=== PATIENT | female | born 1990 | race Caucasian/White ===

== ENCOUNTER 2018-02-01 13:49 | Emergency (ER) | payer OTHER, SELFPAY ==
[2018-02-01 13:50] VITALS: BP 123/76; PULSE 122; RESP 18; TEMP 36.7; O2SAT 100; BMI 23.4
[2018-02-01 14:05] VITALS: BP 127/75; PULSE 103; RESP 18; O2SAT 100
--- NOTE | 2018-02-01 14:23 | US_ITS ---
STUDY: FIRST TRIMESTER OBSTETRICAL ULTRASOUND REASON FOR EXAM: Female, 27 years old. Pelvic pain LMP: 12/29/2017 TECHNIQUE: Transvaginal TECHNICAL QUALITY: Adequate. PRIOR ULTRASOUND: None. FINDINGS: There is visualization of a single gestational sac in a normal intrauterine position. The mean sac diameter (MSD) measures 3 mm, indicating an estimated gestational age (EGA) of 4 weeks, 5 days. The gestational sac shape is within normal limits. There is no demonstrated yolk sac. The placenta is non-visualized. There is no demonstrated embryo ( pole). The estimated gestation age (EGA) by LMP is 4 weeks, 6 days. The estimated date of delivery (WYATT) by LMP is 10/05/2018. The estimated gestation age (EGA) by US is 4 weeks, 5 days. The estimated date of delivery (WYATT) by US is 10/06/2018. The uterus measures 7.9 x 5.1 x 3.7 cm.. There is no demonstrated uterine fibroid. The cervix is closed. The right ovary measures 2.5 x 1.5 x 1.3 cm. There is no right ovarian cyst. There is no visualized right adnexal mass or complex lesion. The left ovary was not visualized. There is no fluid in the cul de sac. US/Transvaginal w/Preg US IMPRESSION: A gestational sac is noted measuring 3 mm, corresponding to very early of 4 weeks 5 days. No pole or yolk sac is identified as of yet. The right ovary appears normal. The left ovary was not visualized. Close interval ultrasound follow-up with beta hCG correlation is recommended. Electronically Signed: Arcenio Sanders MD at 17:04 EST , Service support ,
--- NOTE | 2018-02-01 14:41 | ED.VISSUMM ---
- ER Visit Summary Date of Service: 02/01/18 Chief Complaint: Abdominal pain History of Present Illness: The patient is a 27 F presenting with left lower quadrant abdominal pain. She states that this has worsened over the past 2 days. She has nausea with no vomiting. She denies fever. She has a history of acute intermittent porphyria. She is 5 weeks . She states typically when she is her symptoms worsen. She denies vaginal bleeding. She was seen by Dr. Villanueva 1.5 weeks ago. She recently moved here from [place]. In [place] she was receiving hemin infusions every 4 weeks. She is on Percocet and morphine at home. She is scheduled to follow with [facility]. She had an ultrasound last week and was told it was too early to see the baby. Physical Examination: Vitals are stable. Patient is afebrile. Alert no acute distress. HEENT exam is unremarkable. Neck is supple. Lungs are clear and equal bilaterally. Heart is regular rate and rhythm. Abdomen is soft left lower quadrant tenderness with no rebound or guarding Extremities are unremarkable. Skin is warm and dry. No focal neurologic deficit. Remainder of exam is unremarkable. Emergency Department Course and Treatment: Patient was given morphine, Zofran IV. CBC shows white count 4.3, chemistries show BUN 29. Urinalysis unremarkable. hCG quant 3399. Blood type is A positive. Pelvic ultrasound shows gestational sac is noted measuring 3 mm, corresponding to very early of 4 weeks 5 days. No pole or yolk sac is identified as of yet. The right ovary appears normal. The left ovary was not visualized. Close interval ultrasound follow-up with beta hCG correlation is recommended. Discussed with Dr Oconnell. We do not have hemin available, recommends transfer to tertiary care center. Discussed with [facility] and patient was accepted for transfer. Disposition: Transfer [facility] Impression: Acute intermittent porphyria This note was generated with [employer] dictation software. It may contain incorrect words, spelling, and punctuation that were not noted in review of the chart prior to signing ED Disposition - Plan for ED Patient: Chief Complaint: Abd Pain Referrals: Chris Pittman MD [Primary Care Provider] -
[2018-02-01 14:49] LABS: Bacteria 0 SEEN /hpf (None Seen); Mucous, Urine 0 SEEN /hpf (<or=2+); Red Blood Cells-Urine 0 SEEN /hpf (0-5); White Blood Cells 0 SEEN /hpf (0-5)
[2018-02-01 14:55] LABS: Color, Urine Yellow (Yellow); Glucose, Dipstick Normal (Normal); Ketone-Dipstick Negative (Negative); Leukocyte Esterase-Dipstick Negative /ul (Negative); Nitrite-Dipstick Negative (Negative); Occult Blood-Urine Negative /ul (Negative); Protein-Dipstick Negative (Negative); Specific Gravity, Urine 1.005 (1.002-1.030); Urine Bilirubin Dipstick Negative (Negative); Urine Clarity Sl. Cloudy (Clear); Urine Urobilinogen Normal (Normal); Urine pH 6.5 (5.0 - 8.0)
[2018-02-01 15:02] LABS: Squamous Epithelial Cells - UA 5-10 SEEN /hpf (5-10)
[2018-02-01] MEDS: 0.9% Normal Saline 1,000 ML 1000 ML IV (15:11)
[2018-02-01] MEDS: Morphine 4 MG/ML Syringe IV ×3 (15:11→19:51)
[2018-02-01] MEDS: Ondansetron 4 MG/2 ML Vial IV ×2 (15:12→19:50)
[2018-02-01 15:27] LABS: Absolute Lymphocyte Count 0.81 X10^3/ul (0.83-4.51); Absolute Neutrophil Count 3.2 X10^3/uL (2.0-7.7); Basophil# 0.01 X10^3/uL; Basophil% 0.2 % (0-1); Eosinophil# 0.02 X10^3/uL; Eosinophils% 0.5 % (0-5); Hematocrit 39.8 % (37-47); Hemoglobin 12.7 g/dl (12.0-15.0); Lymphocyte # 0.81 X10^3/ul (4.0); Lymphocyte % 18.8 % (19-41); Mean Corp Hgb Conc 31.9 g/gl (32-36); Mean Corpuscular Hgb 28.2 pg (27.0-32.0); Mean Corpuscular Volume 88.4 fL (81-99); Mean Platelet Vol. 10.5 fl (6.2-12.0); Monocyte# 0.29 X10^3/uL; Monocyte% 6.7 % (0-10); Neutrophil # 3.18 X10^3/uL (2.7-7.7); Neutrophil % 73.8 % (47-70); Platelet Count 205 K/mm3 (150-450); RBC Distribution Width CV 12.6 % (11.6-14.6); RBC Distribution Width SD 40.5 fl (35.1-43.9); White Blood Count 4.3 K/mm3 (4.4-11.0)
[2018-02-01 15:34] LABS: POSITIVE COUNT NO; POSITIVE DIFFERENTIAL NO; POSITIVE MORPHOLOGY NO
[2018-02-01 15:36] LABS: Anion Gap 10 (5-15); BUN 29 mg/dL (7-18); BUN/Creat Ratio 29.2 RATIO (10-20); Calcium,Total 9.7 mg/dL (8.5-10.1); Chloride 106 mmol/L (98-107); Creatinine, Serum 0.99 mg/dL (0.55-1.02); EST Glomerular Filtration Rate 72 mL/min (>60); Est Glom Filt Rate - Afr Amer 87 mL/min (>60); Estimated Creatinine Clearance 80.61 ml/min; Glucose 81 mg/dL (74-106); Sodium Level 138 mmol/L (136-145)
[2018-02-01 16:18] LABS: hCG Titer Quant., Serum 3399 mIU/mL (<9 non-preg)
[2018-02-01 16:42] VITALS: BP 118/64; PULSE 112; RESP 16; O2SAT 100
--- NOTE | 2018-02-01 17:43 | NURSING ---
CALLING [facility]
[2018-02-01 18:33] VITALS: BP 95/54; PULSE 84; RESP 15; O2SAT 100
[2018-02-01 19:07] LABS: AST(SGOT) 29 U/L (15-37); Alanine Aminotransfer ALT/SGPT 36 U/L (13-56); Albumin, Serum 4.6 g/dL (3.2-5.0); Alkaline Phosphatase 81 U/L (45-117); Bilirubin, Direct 0.22 mg/dL (0.00-0.30); Globulin 4.4 g/dL (2.2-4.2)
[2018-02-01 19:57] VITALS: BP 116/57; PULSE 91; RESP 16; O2SAT 100
== END 2018-02-01 19:59 | disposition short-term general hospital (02) ==
PROVIDERS: Emergency Provider Emergency Medicine; Family Provider Family Medicine; PCP Family Medicine
DX: O99.89 Other specified diseases and conditions complicating pregnancy, childbirth and the puerperium (principal); E80.21 Acute intermittent (hepatic) porphyria; O99.351 Diseases of the nervous system complicating pregnancy, first trimester; G40.909 Epilepsy, unspecified, not intractable, without status epilepticus; Z3A.01 Less than 8 weeks gestation of pregnancy; Z79.899 Other long term (current) drug therapy
CPT/HCPCS: 36415; 76817; 80048; 80076; 81001; 84702; 85025; 86900; 96361; 96374; 96375; 96376; 99283; J7030; A4216; J2405

== ENCOUNTER 2018-02-06 12:08 | Emergency (ER) | payer OTHER, SELFPAY ==
[2018-02-06 12:09] VITALS: BP 143/85; PULSE 115; RESP 18; TEMP 37; O2SAT 98; BMI 23.8
--- NOTE | 2018-02-06 12:28 | ED.DCSUM_ITS ---
- ER Visit Summary Date of Service: 02/06/18 Chief Complaint: Presents from work because of severe lower abdominal pain History of Present Illness: The patient is a 27 F who presents from work because of severe lower abdominal pain. She states she has had similar episode a recent admission for treatment of porphyruria. Patient states she called Dr. Ireland's office. She reports no response and reason she presents to the emergency department. She denies fever, chills night sweats. She denies ocular, visual auditory symptoms. She denies cardiac or stroke symptoms. She denies dysuria, frequency, urgency or hematuria. She denies vaginal discharge or vaginal bleeding. She is 6 weeks gestation. This is her second . There is no history of trauma. Physical Examination: Vital signs noted and remarkable for an elevated blood pressure and elevated heart rate of 143/85 and 115 respectively. Of note there was no eye contact during the history and majority of the physical examination. Heart is regular without murmur, gallop or rub. S1 and S2 are normal. Lungs a re clear to auscultation with good movement of air bilaterally. Abdomen is soft and nontender. There is no guarding or peritoneal findings. There is no palpable pulsatile mass. There is no abdominal bruit. Felder sign is negative. Negative Rovsing sign. There is no evidence of inguinal or umbilical hernia. There is a surgical scar secondary to laparoscopic appendectomy. There is no evidence of trauma. There is no skin lesions. There is no CVA tenderness noted. Test Results: Case was discussed with Dr. Oconnell. He informed me that she declined fourth dose of hematin. Emergency Department Course and Treatment: Call was placed to Dr. Oconnell to discuss patient's case and suggestions regarding treatment management since she was released from [facility] less than 48 hours ago and this is an ongoing chronic problem. Treatment Plan: It was recommended by Dr. Ireland that she go to [facility]. She declined fourth dose of hemin. She does not wish to be transferred to the [facility] today. She requested liter of D10 and something for the pain. Disposition: Discharged home in stable improved condition Impression: 1. Abdominal pain 2. History of porphyruria 3. First trimester This note was generated with Voal[employer] dictation software. It may contain incorrect words, spelling, and punctuation that were not noted in review of the chart prior to signing ED Disposition - Plan for ED Patient: Disposition: Home or Assisted Living Chief Complaint: Abd Pain Referrals: Chris Pittman MD [Primary Care Provider] - As Needed Additional Instructions: Recommend following up with your oncologist Dr. Steele. If you develop fever, severe abdominal pain, nausea vomiting or any concerns please do not hesitate to return to the emergency department.
[2018-02-06] MEDS: Morphine 2 MG/ML Syringe IV (13:12)
[2018-02-06] MEDS: Ondansetron 4 MG/2 ML Vial IV (13:12)
[2018-02-06] MEDS: Dextrose 10%-Water 250 ML 1000 ML IV ×4 (13:31→14:24)
[2018-02-06 16:02] VITALS: BP 115/60; PULSE 100; RESP 16; O2SAT 100
== END 2018-02-06 16:13 | disposition home or self-care (01) ==
PROVIDERS: Emergency Provider Emergency Medicine; Family Provider Family Medicine; PCP Family Medicine
DX: O26.891 Other specified pregnancy related conditions, first trimester (principal); R10.30 Lower abdominal pain, unspecified; O99.89 Other specified diseases and conditions complicating pregnancy, childbirth and the puerperium; E80.20 Unspecified porphyria; Z3A.01 Less than 8 weeks gestation of pregnancy
CPT/HCPCS: 96361; 96374; 96375; 99282; A4216; J2405

== ENCOUNTER 2018-02-19 23:25 | Emergency (ER) | payer OTHER, SELFPAY ==
[2018-02-19 23:26] VITALS: BP 135/76; PULSE 107; RESP 17; TEMP 36.7; O2SAT 100; BMI 26.7
[2018-02-20 01:07] LABS: hCG Titer Quant., Serum 3421 mIU/mL (<9 non-preg)
--- NOTE | 2018-02-20 01:26 | ED.VISSUMM ---
- ER Visit Summary Date of Service: 02/20/18 Chief Complaint: Vaginal bleeding History of Present Illness: The patient is a 27 F who is 7 weeks by dates. She was seen here on February 01 for abdominal pain and found to be . Ultrasound at that time showed a gestational sac measuring about 4 weeks. She had a follow-up appointment with [facility] yesterday and had a repeat ultrasound and was told she was still measuring 4 weeks and they were unable to visualize any cardiac activity. She was told to return in 2 weeks for repeat ultrasound. She has been having some light brown bleeding but it became prior to her today and she had a single small clot. No fevers. She denies any pelvic pain. No vaginal discharge. No urinary symptoms Physical Examination: Afebrile heart rate 107 vitals otherwise unremarkable Heart regular rhythm slightly tachycardic Lungs clear Abdomen soft nontender nondistended Alert Test Results: Quantitative hCG is 3421 which is only slightly up from 3399 on February 01. Emergency Department Course and Treatment: Quantitative hCG obtained as above. Patient just had an ultrasound yesterday. She is not complaining of any severe bleeding. I do not believe another emergent pelvic ultrasound is necessary. 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 Patient understands to return for new or symptoms. She was discharged. Treatment Plan: [] Disposition: Discharge Impression: Vaginal bleeding in This note was generated with [employer] dictation software. It may contain incorrect words, spelling, and punctuation that were not noted in review of the chart prior to signing ED Disposition - Plan for ED Patient: Chief Complaint: Vag Bld, Preg Referrals: Chris Pittman MD [Primary Care Provider] -
--- NOTE | 2018-02-20 01:28 | ED.DEP ---
ED Disposition - Plan for ED Patient: Chief Complaint: Vag Bld, Preg Instructions: ED Miscarriage Poss Referrals: Chris Pittman MD [Primary Care Provider] - Larissa Agustin DO [STAFF PHYSICIAN] -
[2018-02-20 01:39] VITALS: BP 122/68; PULSE 71; RESP 16; O2SAT 100
--- NOTE | 2018-02-20 01:39 | ED.RN ---
THIS NURSE REVIEWED D/C INSTRUCTIONS WITH PT. PT VERBALIZED UNDERSTANDING OF INSTRUCTIONS. PT DENIES FURTHER NEEDS OR QUESTIONS AT THIS TIME. PT AMBULATES FROM ROOM ON OWN WITH ASSISTANCE FROM STAFF
== END 2018-02-20 01:41 | disposition home or self-care (01) ==
LOC: ED 02-20 01:16
PROVIDERS: Emergency Provider Emergency Medicine; Family Provider Family Medicine; PCP Family Medicine
DX: O20.9 Hemorrhage in early pregnancy, unspecified (principal); O99.89 Other specified diseases and conditions complicating pregnancy, childbirth and the puerperium; E80.21 Acute intermittent (hepatic) porphyria; Z3A.01 Less than 8 weeks gestation of pregnancy; Z79.899 Other long term (current) drug therapy
CPT/HCPCS: 36415; 84702; 86900; 99282

== ENCOUNTER → 2018-08-27 | Outpatient (CLI) | payer MEDICAID, SELFPAY ==
[2018-08-27 15:30] LABS: Amphetamine Urine VISTA NEGATIVE (<1000 ng/mL); Barbiturate Urine VISTA NEGATIVE (< 200 ng/mL); Benzodiazepine Urine VISTA NEGATIVE (< 200 ng/mL); Cocaine Urine VISTA NEGATIVE (< 300 ng/mL); Ecstacy Urine VISTA NEGATIVE (< 500 ng/mL); Methadone Urine VISTA NEGATIVE (< 300 ng/mL); PCP Urine VISTA NEGATIVE (< 25 ng/mL); THC Urine VISTA NEGATIVE (< 50 ng/mL); Vista UDS pH Range 5
== END | disposition home or self-care (01) ==
LOC: LAB 13:45
PROVIDERS: Family Provider Family Medicine; PCP Family Medicine; Referring Provider Anesthesiology Pain Medicine; Visit Provider Anesthesiology Pain Medicine
DX: F11.20 Opioid dependence, uncomplicated (principal)
CPT/HCPCS: 80307

== ENCOUNTER → 2018-09-24 | Outpatient (CLI) | payer MEDICAID, SELFPAY ==
[2018-09-24 13:02] LABS: Amphetamine Urine VISTA NEGATIVE (<1000 ng/mL); Barbiturate Urine VISTA NEGATIVE (< 200 ng/mL); Benzodiazepine Urine VISTA NEGATIVE (< 200 ng/mL); Cocaine Urine VISTA NEGATIVE (< 300 ng/mL); Ecstacy Urine VISTA NEGATIVE (< 500 ng/mL); Methadone Urine VISTA NEGATIVE (< 300 ng/mL); PCP Urine VISTA NEGATIVE (< 25 ng/mL); THC Urine VISTA NEGATIVE (< 50 ng/mL); Vista UDS pH Range 5
== END | disposition home or self-care (01) ==
LOC: LAB 11:26
PROVIDERS: Family Provider Family Medicine; PCP Family Medicine; Referring Provider Anesthesiology Pain Medicine; Visit Provider Anesthesiology Pain Medicine
DX: F11.20 Opioid dependence, uncomplicated (principal)
CPT/HCPCS: 80307

== ENCOUNTER 2018-10-13 15:30 | Outpatient (CLI) | payer MEDICAID, SELFPAY ==
[2018-10-13 15:39] VITALS: BMI 24.3
[2018-10-13] MEDS: oxyCODONE 5 MG Tablet PO (16:53)
[2018-10-13] MEDS: Acetaminophen 500 MG Tablet 650 MG PO (16:54)
--- NOTE | 2018-10-14 16:26 | OB.TRI.HP_ITS ---
History of Present Illness Date of Service: 10/13/18 Was patient seen by the physician?: Yes Reason For Visit: ABDOMINAL PAIN Date of Service: 10/13/18 Final WYATT: 02/26/19 Gestational age: 20 Weeks and 5 Days History of Present Illness: 28 yo [id number] female at 20 4/7 wk EGA with h/o chronic pain, LLQ, 2/2 porphyria. She was seen briefly in the ED and then sent to for evaluation. She is in pain management with Dr Madden and normally wears a patch, Buprenorphine 5 mcg/hr and takes Percocet one tab q am in addition to her narcotic patch. States her Buprenorphine 5 mcg/hr narcotic patch fell off yesterday. She has not reapplied another patch but has one at home. Took usual Percocet this AM but with very little relief. States didn't know what to do as her doctor (Chano) is not in, holiday weekend. She has a contract with Dr Madden, advised and understands that no RX to be given today. Will treat acute pain only. Denies any episodic pain. No vaginal bleeding. PNC in [place], and here visiting a friend. Allergies No Known Allergies Allergy (Verified 02/19/18 23:26) Physical Exam General: Alert, Oriented x3, Cooperative, No apparent distress HEENT: Atraumatic, EOMI Abdomen: Soft, Gravid - minimal pain LLQ nonsurgical abdomen NST - FHR Rate Baby A Baseline: 140-150s FHT at 20 4/7 wk EGA Uterine Activity:: No UCs. Impression/Plan 20 4/7 wk . [id number] female with chronic pain seen by Dr Madden. Pain 2/2 porphyria, usual location at LLQ Pain unrelated to . In pain management with contract for pain meds per Dr Madden. Discussed care with Dr Madden. Buprenorphine pain patch is NOT available through [facility] pharmacy. -- Oxycodone 10 mg and tylenol 650 mg po times one prior to dischg. -- Advised to go home to [place] and to apply another patch.
== END 2018-10-13 17:30 | disposition home or self-care (01) ==
LOC: WPOUT 15:34 → WP 15:35
PROVIDERS: Family Provider Family Medicine; PCP Family Medicine; Visit Provider Obstetrics & Gynecology
DX: O99.89 Other specified diseases and conditions complicating pregnancy, childbirth and the puerperium (principal); R10.32 Left lower quadrant pain; G89.29 Other chronic pain; O99.282 Endocrine, nutritional and metabolic diseases complicating pregnancy, second trimester; E80.20 Unspecified porphyria; Z3A.20 20 weeks gestation of pregnancy
CPT/HCPCS: 59025; 59050; 99218; G0378